=== PATIENT | female | born 1970 | race Caucasian/White ===

== ENCOUNTER → 2022-01-15 | Outpatient (CLI) | payer SELFPAY ==
[2022-01-22 17:36] LABS: HPV APTIMA, High Risk Negative (Negative)
== END | disposition home or self-care (01) ==
PROVIDERS: PCP Family Medicine; Referring Provider Registered Nurse; Visit Provider Registered Nurse
DX: Z12.4 Encounter for screening for malignant neoplasm of cervix (principal)
CPT/HCPCS: 87624; 88175; G0145

== ENCOUNTER → 2022-10-16 | Outpatient (CLI) | payer OTHER, SELFPAY ==
[2022-10-16 11:22] LABS: Cholesterol 214 mg/dL (200); High Density Lipoprotein 53 mg/dL; Triglycerides 59 mg/dL; Very Low Density Lipoprotein 12 mg/dL (5-40)
== END | disposition home or self-care (01) ==
PROVIDERS: PCP Family Medicine; Referring Provider Internal Medicine Cardiovascular Disease; Visit Provider Internal Medicine Cardiovascular Disease
DX: I65.29 Occlusion and stenosis of unspecified carotid artery (principal); Z82.49 Family history of ischemic heart disease and other diseases of the circulatory system
CPT/HCPCS: 36415; 80061; 81291

== ENCOUNTER → 2022-12-04 | Outpatient (CLI) | payer SELFPAY, OTHER ==
--- NOTE | 2022-12-04 09:19 | STE_ITS ---
Reason For Study: Family history of Ischemic heart disease Stress Results Protocol: Stress Echocardiogram-[place] Protocol Maximum Predicted HR: 168 bpm Target HR: 143 bpm % Maximum Predicted HR: 101 % Heart Stage Duration Rate BP Comment (mm:ss) (bpm) Baseline 69 133/88Patient denies chest pain Patient complains of mild shortness of breath, and sharp left Stage 1 3:00 137 180/100lateral chest wall pain at 5 out of 10. Patient states that the shortness of breath and left lateral chest Stage 2 3:00 157 196/102wall pain are the same. no changes. Stage 3 2:00 169 204/102Increased shortness of breath Patient states that chest pain is gone. Shortness of breath is Recovery 95 134/88resolved. Stress Duration: 8:00 mm:ss Maximum Stress HR: 169 bpm Baseline Echocardiogram Findings Stress Echo Wall motion Data Resting WM Intermediate WM Stress WM ECHO/Stress Test Echo w/o Contrast Interpretation Summary Echocardiogram. Resting EKG demonstrates normal sinus rhythm with a rate of 69 bpm no acute barney nges. Resting blood pressure is 133/88 mmHg. The patient exercised according to the regular [place] p rotocol for total duration of 8 minutes. The maximum heart rate attained was 169 bpm which was 10 0% of max impacted heart rate the maximum workload was 10.1 metabolic equivalents. At rest there w ere no ST or T wave changes noted suggest ischemia and at peak exercise upsloping ST changes were n oted which did not meet the criteria for ischemia. The patient did experience shortness of breath at peak exercise. The peak blood pressure was 204/102 which was a hypertensive response to exercise. Stress echocardiogram. The resting echocardiogram demonstrated normal left vent ricular size with a globally reduced left ventricular ejection fraction estimated at 40%. During ex ercise there was improved contractility with estimated ejection fraction to 45%. No new wall mot ion abnormalities were noted. Conclusion: Nonischemic cardiomyopathy at rest. Excellent functional aerobic capacity. No angina noted. Hypertensive response to exercise. Ordering Physician: Devyn Mckeon Referring Physician: Devyn Mckeon Performed By: Rosi Elder RCS
--- NOTE | 2022-12-04 09:21 | CT_ITS ---
STUDY: CT CHEST WITHOUT CONTRAST REASON FOR EXAM: Female, 52 years old. FAM HX CAD RADIATION DOSAGE (If Supplied By Facility): CTDIvol = ( 12.19 ) mGy, DLP = ( 195.04 ) mGycm TECHNIQUE: Transaxial imaging was performed without the administration of intravenous contrast material. Overread examination. Individualized dose optimization techniques were used for this CT. COMPARISON: No relevant priors. FINDINGS: CHEST The lungs are normal. There is no demonstrated pleural abnormality. Mild coronary calcification of the LAD. Normal mediastinum. Normal hilar regions. Normal unenhanced pulmonary arteries. Mild degree of atherosclerotic plaque formation of the aortic arch. Normal osseous structures. There is no demonstrated abnormality of the visualized upper abdomen. CT/Limited Chest CT Cardiac Only IMPRESSION: Mild coronary calcification. Electronically Signed: Apolinar Clements MD at 10:57 EDT ,
--- NOTE | 2022-12-04 14:37 | CA.SCORE ---
Calcium Scoring Date of Study:: 12/04/22 Indications Indications: Family history of heart disease Coronary Calcium Scoring: High-resolution Computed Tomographic imaging of the chest was performed on [12/04/2022], with particular attention paid to the coronary arteries. Images from the examination were analyzed for the presence and extent of coronary artery calcification , using coronary calcium quantification software. The patient tolerated the procedure well and there were no complications. The results of the coronary calcification analysis are provided below. Findings Coronary Artery Left Main (LM): 0 Left Anterior Descending (LAD): 0 Left Circumflex (LCX): 0 Right Coronary Artery (RCA): 0 Total Agatston Score: 0 Percentile Rankinth percentile Calcium Scoring Interpretation: Different methods to categorize the overall amount of coronary plaque. Overall amount CAC SIS Visual of coronary plaque P1 Mild -100 <2 1-2 vessels with mild amount of plaque P2 Moderate 101-300 3-4 1-2 vessels with moderate amount, 3 vessels with mild amount of plaque P3 Severe 301-999 5-7 3 vessels with moderate amount, 1 vessel with severe amount of plaque P4 Extensive >1000 >8 2-3 vessels with severe amount of plaque Conclusion: No significant atherosclerotic plaquing noted.
== END | disposition home or self-care (01) ==
LOC: CVS 09:17
PROVIDERS: PCP Family Medicine; Referring Provider Internal Medicine Cardiovascular Disease; Visit Provider Internal Medicine Cardiovascular Disease
DX: I25.10 Atherosclerotic heart disease of native coronary artery without angina pectoris (principal); I42.8 Other cardiomyopathies; Z82.49 Family history of ischemic heart disease and other diseases of the circulatory system
CPT/HCPCS: 75571; 76380; 93017; 93350

== ENCOUNTER → 2022-12-13 | Outpatient (CLI) | payer OTHER, SELFPAY ==
[2022-12-13 10:14] LABS: Absolute Lymphocyte Count 1.72 X10^3/uL (0.83-4.51); Absolute Neutrophil Count 3.3 X10^3/uL (2.0-7.7); Basophil# 0.06 X10^3/uL; Basophil% 1.1 % (0-1); Eosinophil# 0.05 X10^3/uL; Eosinophils% 0.9 % (0-5); Hematocrit 40.4 % (37-47); Hemoglobin 13.4 g/dL (12.0-15.0); Lymphocyte # 1.72 X10^3/ul (0.83-4.51); Mean Corp Hgb Conc 33.2 g/dL (32-36); Mean Corpuscular Hgb 29.8 pg (27.0-32.0); Mean Corpuscular Volume 89.8 fL (81-99); Mean Platelet Vol. 9.4 fl (6.2-12.0); Monocyte# 0.44 X10^3/uL; Monocyte% 7.9 % (0-10); NRBC Flagged by Analyzer 0 % (0-5); Neutrophil # 3.27 X10^3/uL (2.7-7.7); Neutrophil % 58.9 % (47-70); Platelet Count 334 K/mm3 (150-450); RBC Distribution Width CV 12.9 % (11.6-14.6); White Blood Count 5.6 K/mm3 (4.4-11.0)
[2022-12-13 10:21] LABS: International Normalized Ratio 1.4; Prothrombin Time (Protime)PT. 17.6 SECONDS (11.7-14.9)
[2022-12-13 10:22] LABS: Partial Thromboplast Time 44.6 Seconds (24.1-36.2)
[2022-12-13 10:52] LABS: Anion Gap 3 (5-15); BUN 16 mg/dL (7-18); BUN/Creat Ratio 18.1 RATIO (10-20); Calcium,Total 9.1 mg/dL (8.5-10.1); Chloride 109 mmol/L (98-107); Creatinine, Serum 0.88 mg/dL (0.55-1.02); EST Glomerular Filtration Rate 71 mL/min (>60); Est Glom Filt Rate - Afr Amer 86 mL/min (>60); Glucose 100 mg/dL (74-106); Potassium 4.2 mmol/L (3.5-5.1); Sodium Level 138 mmol/L (136-145)
== END | disposition home or self-care (01) ==
PROVIDERS: PCP Family Medicine; Referring Provider Physician Assistant Medical; Visit Provider Physician Assistant Medical
DX: I42.8 Other cardiomyopathies (principal)
CPT/HCPCS: 36415; 80048; 85025; 85610; 85730

== ENCOUNTER 2022-12-16 07:28 | Day surgery (SDC) | payer SELFPAY, OTHER ==
--- NOTE | 2022-12-11 13:21 | PCM.HP.BLA ---
History and Physical Date of Admission: 12/16/22 Simran Varela is a 52-year-old lady with no significant cardiac history but a significant family history of cardiac disease. She had a sister who is 2 years younger than her have a myocardial infarction. She denies any chest pain per se though she has had some shortness of breath but denies any dizziness diaphoresis near syncope or syncope. She is on no cardiac medications. She presents to us for evaluation of her cardiac status. She did have a lipid profile performed approximately 3 years ago demonstrating an HDL of 50 and LDL of 116. She did also have some problems with miscarriages during her . But no hypertension. Her physical exam demonstrates clear lung guillen regular rate and rhythm no pedal edema her electrocardiogram demonstrates sinus rhythm with a rate of 64 bpm and no acute changes. She had a stress echo on 12/04/2022 which demonstrated normal left ventricular size with a globally reduced ejection fraction of 40%. During exercise there is improved contractility with an estimated ejection fraction of 45%. No new wall motion abnormalities were noted. She did have a coronary calcium score which was negative. However because of her decreased ejection fraction on her stress echo would like to further evaluate with a diagnostic heart catheterization. Intake Visit Reasons: POSS GENETIC HEART CONDITION (RAD MOON) [employer] Required: No Accompanied by: None Is patient in pain?: No Allergies No Known Allergies Allergy (Verified 10/16/22 08:53) Medications Thyroid complex 1 cap PO DAILY 10/16/22 [History] sertraline 50 mg tablet 50 mg PO DAILY 10/16/22 [History Confirmed 10/16/22] PFSH Medical History Carotid artery stenosis Surgical History History of delivery Family History Grandfather CancerGrandmother CVA (cerebral vascular accident)Father Myocardial infarction, Onset Age: 57Other Family history of genetic disease Social History Smoking Status: Never smoker alcohol intake: never caffeine: Yes Type: coffee Number of servings: 3 ROS Const Const: Negative for fatigue, weakness, headache(s), frequent falls, difficulty sleeping or excessive sweating Eyes Eyes: Negative for loss of peripheral vision, transient loss of vision, blurry vision, double vision or tunnel vision ENT ENT: Negative for headache(s), dizziness, Nosebleed/epistaxis or balance problems Cardio Chest Pain: Yes Frequency: weekly (a couple times per week) Character: sharp Onset: other (At the end of the day when she is tired from working) Location: other (Between shoulder blades) Duration: hours Relieving: rest and other (massage) Palpitations: Yes feels like its: skipping and pounding Edema: None Muscle aches with walking: None Resp Respiratory: Positive for SOB with activity (Occasional SOB with stairs); Negative for SOB at rest, SOB orthopnea\SOB lying down, Cough or paroxysmal nocturnal dyspnea GI GI: Negative nausea, vomiting, heartburn or black,tarry stools : Negative for hematuria Musc Musc: Negative for muscle aches/ myalgia, muscle weakness, joint pain or balance problems Skin Skin: Negative non-healing lesions, rash or unusual bruising Neuro Neuro: Positive for lightheadedness (Only if she doesn't take her thyroid supplement); Negative for dizziness, near syncope, syncope, frequent falls, headache(s), weakness, blurry vision, double vision or lack of coordination Jeremias Hematologic/Lymphatic: Negative for easy bleeding or easy bruising Endo Endo: Negative for fatigue, excessive sweating or increased thirst/drinking Psych Psych: Negative for anxiety or depression Allergy Allergy/Immunology: Negative for hives and Negative for rash Cardiology Exam Const Appearance: cooperative, healthy appearing, no acute distress, well developed and well groomed Nutritional Appearance: average body habitus and well nourished Orientation: alert, awake and oriented x3 Head Head: normal to inspection, normocephalic and atraumatic Ears: hearing grossly normal bilaterally and external ears normal Nose: external nose normal, nares normal, nasal mucous membranes and turbinates normal, septum normal and no nasal discharge Face and Sinus: face symmetric Mouth: oral mucosae normal, tongue normal, oropharynx normal and moist mucous membranes Teeth and gingiva: dentition normal Throat: posterior oropharynx normal, tonsils normal and uvula midline Eyes General: appearance normal, both eyes and all related structures Eyelids: eyelids normal Conjunctivae: conjunctivae normal Pupils: PERRL, normal by confrontation and accommodation normal EOM: EOM intact bilaterally Neck Neck: normal visual inspection, trachea midline and no JVD JVD: +5 Carotids: normal carotid upstroke and bounding pulses Chest Chest inspection: normal inspection of the chest, symmetric chest movement and normal respiratory effort Auscultation: Bilateral: Clear to Auscultation Cardio Palpation: normal PMI Rate: regular rate Rhythm: regular rhythm Heart sounds: S1 normal, S2 normal and normal, physiologic split S2; Negative rub, gallop or murmur GI GI: normal to inspection, soft, no hepatosplenomegaly and bowel sounds present Neuro General: patient alert, patient awake, patient oriented x3, gait normal, moves all extremities and no focal sensory deficit Skin Skin: no rashes or lesions noted Extremities Pulses: Normal: Right Femoral Pulse, Left Femoral Pulse, Right Dorsalis Pedis Pulse, Left Dorsalis Pedis Pulse, Right Posterior Tibial Pulse, Left Posterior Tibial Pulse, Right Radial Pulse and Left Radial Pulse Lower Extremity Edema: None: Bilateral Musculoskel Musculoskeletal: No joint tenderness Psych Psychological: normal affect Assessment & Plan Assessment/Plan (1) FH: CAD (coronary artery disease): (2) Non-ischemic cardiomyopathy: PLAN: Plan She has a strong family history of coronary disease. With her cardiomyopathy would like to further evaluate with a cardiac cath.
[2022-12-13 08:36] VITALS: BMI 34.7
[2022-12-13 10:31] LABS: Internal QC Validated? YES +Cl - CLEAR BKGD; Pregnancy, Serum, hCG Quali. NEGATIVE Negative
--- NOTE | 2022-12-16 09:51 | CL.D_ITS ---
Patient Name: ELIECER OLSEN Study Date: 12/16/2022 Performing: Devyn Mckeon MD Ht: 62 inches 157.48 cm : 1970 Wt: 189.99 lbs 86.18 kg Age: 52 Gender: female BSA: 1.87 PROCEDURE(S) PERFORMED [id number]-([id number])LHC/COR/LV CLINICAL PROFILE AND INDICATIONS Indications: Suspected CAD Heart Failure: None Stress/Imaging Stress Echocardiogram: Yes Result: NegativeStress Echocardiogram: Negative CAD Presentations: Stable angina. CONCLUSIONS Normal coronary arteries Cardiomyopathy: Non-ischemic RECOMMENDATIONS Aggressive BP management DESCRIPTION OF PROCEDURE The patient arrived to the procedure lab. The risks and benefits of the procedure as well as a full description of our services here and current unavailability of surgical backup were fully explained to the patient and/or their significant other prior to the catheterization. The Timeout was completed, verifying the correct patient and procedure. The patient's procedural site was prepped and draped in the usual fashion. Local anesthetic was given subcutaneously to right radial region with Lidocaine 2%. Using a modified Seldinger technique, arterial access was obtained via the right radial artery, a 6Fr sheath was inserted. Left Coronary Artery selective angiography was performed in multiple views using a 5 Fr. 4.0 [place] catheter. Right Coronary Artery selective angiography was then performed in multiple views using a 5 Fr. 4.0 [place] catheter. Left Ventriculography was performed in PIPER projection using a 5 Fr. [place] catheter. LV to AO pullback pressures were then recorded.The arterial sheath was pulled and a TR Band was applied for hemostasis CORONARY ANGIOGRAPHY DOMINANCE: Right Dominant LEFT HEART ASSESSMENT Left Ventricular Ejection Fraction: by LV Gram 45 % Abnormal LV wall motion Depressed Left Ventricular systolic function LEFT MAIN: Angiographically normal LEFT ANTERIOR DESCENDING ARTERY: No significant disease noted CIRCUMFLEX ARTERY: Angiographically normal RIGHT CORONARY ARTERY: Angiographically normal COMPLICATIONS No Complications PROCEDURE MEDICATIONS Fentanyl 50 mcg IV Versed 1 mg IV Versed 1 mg IV Aspirin (325mg) 1 Tabs PO @ 12/16/2022 08:31:03 SUMMARY OF HEMODYNAMIC DATA Time AIR REST ECG 07:53:15 Art 149/81 (108) 08:56:09 AO 173/99 (129) SA 09:19:23 LV 156/7, 16 09:23:25 LV 125/7, 15 09:23:32 LV 135/7, 18 09:24:13 LVp 154/11, 14 09:24:17 AOp 180/94 (128) 09:24:22 Signed By Devyn Mckeon MD On 12/16/2022 09:50:32 Devyn Mckeon MD
== END 2022-12-16 11:00 | disposition home or self-care (01) ==
PROVIDERS: PCP Family Medicine; Referring Provider Internal Medicine Cardiovascular Disease; Visit Provider Internal Medicine Cardiovascular Disease
DX: I42.8 Other cardiomyopathies (principal); I20.9 Angina pectoris, unspecified; Z82.49 Family history of ischemic heart disease and other diseases of the circulatory system
CPT/HCPCS: 84703; 93458; 99152; 99153; J7040; C1769; C1894; Q9967